=== PATIENT | female | born 1985 | race Caucasian/White ===

== ENCOUNTER 2021-03-18 13:36 | Emergency (ER) | payer OTHER ==
[~2021-03-18] VITALS: Ht 160 cm; Wt 59.1 kg
[2021-03-18] MEDS ORDERED: ZOLO100T (13:45)
[2021-03-18] MEDS ORDERED: ONDANSETRON 4MG/2ML VIAL IV ONE ×2 (14:10→17:10)
[2021-03-18 14:31] LABS: BASO % 0.2 % (0.0-1.0); EOS # 0.2 10^3/uL (0.0-0.5); EOS % 1.7 % (0.0-3.0); HEMOGLOBIN 16.1 g/dl (12.0-15.5); LYMPH # 2.6 10^3/uL (1.5-5.0); LYMPH % 27.9 % (24.0-44.0); MEAN CORPUSCULAR HEMOGLOBIN 33.1 pg (27.0-33.0); MEAN CORPUSCULAR VOLUME 94.7 fl (80.0-96.0); MONO # 0.5 10^3/uL (0.0-0.8); MONO % 5.2 % (2.0-8.0); NEUTROPHILS # 6.1 10^3/uL (1.5-8.5); NEUTROPHILS % 64.6 % (36.0-66.0); PLATELET COUNT, AUTOMATED 245 10^3/uL (150-450); RED BLOOD COUNT 4.86 10^6/uL (4.00-5.40); WHITE BLOOD COUNT 9.4 10^3/uL (4.0-10.0)
[2021-03-18] MEDS ORDERED: HALOPERIDOL 5MG/ML VIAL (J1630 PER 1) IV ONE (14:35)
[2021-03-18] MEDS ORDERED: HYOSCYAMINE SULFATE 0.125 MG SUBL TABLET SL ONE (14:50)
[2021-03-18 14:56] LABS: ALBUMIN 4.4 GM/DL (3.2-5.2); ALT/SGPT 20 U/L (12-78); BILIRUBIN,DIRECT 0.2 MG/DL (0.0-0.2); BILIRUBIN,TOTAL 0.5 MG/DL (0.2-1.0); BLOOD UREA NITROGEN 4 MG/DL (7-18); CALCIUM LEVEL 9.2 MG/DL (8.5-10.1); CARBON DIOXIDE LEVEL 24 MEQ/L (21-32); CHLORIDE LEVEL 108 MEQ/L (98-107); CREATININE FOR GFR 0.72 MG/DL (0.55-1.30); GLOMERULAR FILTRATION RATE > 60.0 (>60); GLUCOSE, FASTING 110 MG/DL (70-100); LIPASE 141 U/L (73-393); POTASSIUM SERUM 3.6 MEQ/L (3.5-5.1); SODIUM LEVEL 140 MEQ/L (136-145); TOTAL PROTEIN 7.1 GM/DL (6.4-8.2)
[2021-03-18 15:00] LABS: HCG, SERUM QUALITATIVE NEGATIVE (NEGATIVE)
[2021-03-18] MEDS ORDERED: GI COCKTAIL 50ML BTL(HYOSCYAMINE/MAALOX/LIDOCAINE VISCOUS)(1:3:1) PO ONE (15:10)
[2021-03-18] MEDS ORDERED: ZOFR4TAB16 PO (16:50)
[2021-03-18] MEDS ORDERED: LEVS0.123 PO (16:50)
[2021-03-18 17:30] VITALS: BP 128/72
== END 2021-03-18 18:12 | disposition home or self-care (01) ==
LOC: M ED 13:36
DX: R11.2 Nausea with vomiting, unspecified (principal); E86.0 Dehydration; R42 Dizziness and giddiness; F33.9 Major depressive disorder, recurrent, unspecified
CPT/HCPCS: 80048; 80076; 83690; 84443; 84703; 85025; 96372; 96374; 96375; 99284; J1630; J2405

== ENCOUNTER → 2022-11-12 | Outpatient (CLI) | payer OTHER ==
[~2022-11-12] MED LIST: FLUO20CA22 PO; LEVS0.123 PO; QUET50TA4 PO; ZOFR4TAB16 PO; ZOLO100T
== END ==
LOC: M LABSMTC 09:06
PROVIDERS: ATTEND Anesthesiology
DX: Z01.812 Encounter for preprocedural laboratory examination (principal); Z11.52 Encounter for screening for COVID-19

== ENCOUNTER 2022-11-15 10:34 | Day surgery (SDC) | payer OTHER ==
[~2022-11-15] VITALS: Ht 160 cm; Wt 62.1 kg
[2022-11-15 11:11] LABS: HEMATOCRIT 43.3 % (36.0-47.0); HEMOGLOBIN 14.3 g/dl (12.0-15.5); MEAN CORPUSCULAR HEMOGLOBIN 31.6 pg (27.0-33.0); MEAN CORPUSCULAR VOLUME 95.6 fl (80.0-96.0); PLATELET COUNT, AUTOMATED 198 10^3/uL (150-450); RED BLOOD COUNT 4.53 10^6/uL (4.00-5.40); WHITE BLOOD COUNT 4.9 10^3/uL (4.0-10.0)
[2022-11-15] MEDS ORDERED: LR 1,000 ML IV SCH ×3 (11:50→16:10)
[2022-11-15] MEDS ORDERED: SCOPOLAMINE 1MG TRANSDERMAL PATCH TOP ONE (12:25)
[2022-11-15] MEDS ORDERED: MIDAZOLAM INJ 2MG/2ML VIAL As Ordered ONE (12:29)
[2022-11-15] MEDS ORDERED: ONDANSETRON 4MG 2ML VIAL As Ordered ONE (12:29)
[2022-11-15] MEDS ORDERED: fentaNYL 100 MCG/2 ML INJECTION As Ordered ONE (12:29)
[2022-11-15] MEDS ORDERED: SUGAMMADEX SODIUM 500 MG/5 ML VIAL (BRIDION) As Ordered ONE (12:29)
[2022-11-15] MEDS ORDERED: METOCLOPRAMIDE INJ 10MG/2ML VIAL As Ordered ONE (12:29)
[2022-11-15] MEDS ORDERED: LIDOCAINE 2% 100MG/5ML SDV (FOR ANES.) As Ordered ONE (12:29)
[2022-11-15] MEDS ORDERED: propofoL 200 MG/20 ML VIAL As Ordered ONE (12:29)
[2022-11-15] MEDS ORDERED: KETOROLAC 60MG 2ML VIAL As Ordered ONE (12:29)
[2022-11-15] MEDS ORDERED: ROCURONIUM BROMIDE 50MG/5ML VIAL As Ordered ONE (12:29)
[2022-11-15] MEDS ORDERED: BUPIVACAINE HCL 0.25% 30ML VIAL As Ordered ONE (14:37)
[2022-11-15] MEDS ORDERED: ACETAMINOPHEN 1000MG 100ML IV BAG As Ordered ONE (15:05)
[2022-11-15] MEDS ORDERED: GLYCOPYRROLATE INJ 0.2 MG/ML 2 ML VIAL As Ordered ONE (15:09)
[2022-11-15] MEDS ORDERED: ONDANSETRON 4MG 2ML VIAL IV PRN (15:50)
[2022-11-15] MEDS ORDERED: MORPHINE 2 MG/ML 1ML VIAL IV PRN (15:50)
[2022-11-15] MEDS ORDERED: oxyCODONE 5MG TAB PO PRN (15:50)
[2022-11-15] MEDS: fentaNYL 100 MCG/2 ML INJECTION IV PRN ×4 (16:00→16:15)
[2022-11-15] MEDS ORDERED: PERCOCET 5MG/325MG TAB PO PRN (16:10)
[2022-11-15 16:38] VITALS: BP 115/64
[2022-11-15] MEDS ORDERED: OXYC1TAB23 PO (17:06)
[2022-11-15] MEDS ORDERED: IBUP-1022 PO (17:07)
== END 2022-11-15 17:05 | disposition home or self-care (01) ==
LOC: M SDC 10:34
PROVIDERS: ATTEND Specialist
DX: Z30.2 Encounter for sterilization (principal); R10.2 Pelvic and perineal pain; R56.9 Unspecified convulsions; F41.9 Anxiety disorder, unspecified; M54.9 Dorsalgia, unspecified; G89.29 Other chronic pain; F32.A Depression, unspecified; Z79.899 Other long term (current) drug therapy; F17.290 Nicotine dependence, other tobacco product, uncomplicated
CPT/HCPCS: 36415; 58661; 81025; 85027; 88302; J1100; J2250; J2405; J2765; J3010

== ENCOUNTER → 2023-04-03 | Outpatient (CLI) | payer OTHER ==
[~2023-04-03] MED LIST changes: +IBUP-1022 PO; +OXYC1TAB23 PO
== END ==
LOC: M PLALAB 14:53
PROVIDERS: ATTEND Specialist
DX: O92.6 Galactorrhea (principal)

== ENCOUNTER → 2023-05-10 | Outpatient (CLI) | payer OTHER ==
[2023-05-10 15:55] LABS: PROLACTIN 6.07 NG/ML; THYROID STIMULATING HORMONE 0.671 uIU/ML (0.55-4.78)
[2023-05-10 15:56] LABS: ESTRADIOL 22.1 PG/ML; FOLLICLE STIMULATING HORMONE 6.4 mIU/ML
[2023-05-10 15:57] LABS: LUTEINIZING HORMONE 4.5 mIU/ML
[2023-05-10 16:01] LABS: PROGESTERONE 0.62 NG/ML
== END ==
LOC: M PLALAB 14:11
PROVIDERS: ATTEND Specialist
DX: N92.6 Irregular menstruation, unspecified (principal)

== ENCOUNTER → 2023-09-13 | Outpatient (CLI) | payer OTHER ==
[2023-09-13 16:01] LABS: PROLACTIN 4.65 NG/ML
[2023-09-13 16:02] LABS: FOLLICLE STIMULATING HORMONE 8.4 mIU/ML; LUTEINIZING HORMONE 9.8 mIU/ML
[2023-09-13 16:03] LABS: ESTRADIOL 52.7 PG/ML
[2023-09-13 16:04] LABS: PROGESTERONE 0.39 NG/ML
== END ==
LOC: M PLALAB 13:41
PROVIDERS: ATTEND Specialist
DX: N92.6 Irregular menstruation, unspecified (principal)

== ENCOUNTER 2023-10-16 18:33 | Emergency (ER) | payer OTHER ==
[2023-10-16] MEDS ORDERED: diazePAM 10MG/2ML SYRINGE IV ONE (19:25)
[2023-10-16] MEDS: HALOPERIDOL 5MG/ML 1ML VIAL IV STA (19:43)
[2023-10-16 20:11] LABS: BASO % 0.1 % (0.0-1.0); HEMATOCRIT 38.8 % (36.0-47.0); HEMOGLOBIN 13.8 g/dl (12.0-15.5); LYMPH # 1.1 10^3/uL (1.5-5.0); LYMPH % 6.8 % (24.0-44.0); MEAN CORPUSCULAR HEMOGLOBIN 32.5 pg (27.0-33.0); MEAN CORPUSCULAR HGB CONC 35.6 g/dl (32.0-36.5); MEAN CORPUSCULAR VOLUME 91.3 fl (80.0-96.0); MONO # 0.7 10^3/uL (0.0-0.8); MONO % 4.1 % (2.0-8.0); NEUTROPHILS # 14.5 10^3/uL (1.5-8.5); NEUTROPHILS % 88.6 % (36.0-66.0); PLATELET COUNT, AUTOMATED 226 10^3/uL (150-450); RED BLOOD COUNT 4.25 10^6/uL (4.00-5.40); WHITE BLOOD COUNT 16.4 10^3/uL (4.0-10.0)
[2023-10-16 20:35] LABS: ALBUMIN 4.4 G/DL (3.2-5.2); ALKALINE PHOSPHATASE 79 U/L (46-116); ALT/SGPT 25 U/L (7.0-40); AST/SGOT 23 U/L (<34); BILIRUBIN,TOTAL 0.8 MG/DL (0.3-1.2); BLOOD UREA NITROGEN 11 MG/DL (9-23); CALCIUM LEVEL 9.2 MG/DL (8.5-10.1); CARBON DIOXIDE LEVEL 24 MMOL/L (20-31); CHLORIDE LEVEL 107 MMOL/L (98-107); CREATININE FOR GFR 0.68 MG/DL (0.55-1.30); GLOMERULAR FILTRATION RATE > 60.0 (>60); GLUCOSE, FASTING 125 MG/DL (60-100); MAGNESIUM LEVEL 1.8 MG/DL (1.8-2.4); POTASSIUM SERUM 3.9 MMOL/L (3.5-5.1); SODIUM LEVEL 140 MMOL/L (136-145); TOTAL PROTEIN 7.2 G/DL (5.7-8.2)
[2023-10-16 20:43] LABS: CPK CREATINE PHOSPHOKINASE 87 U/L (34-145)
[2023-10-16 21:53] LABS: HCG, SERUM QUALITATIVE NEGATIVE (NEGATIVE)
[2023-10-16 21:56] VITALS: BP 145/84; TEMP 96.5; O2SAT 95
[2023-10-16] MEDS ORDERED: ATIV1TAB10 PO (23:28)
[2023-10-17] MEDS: LORazepam 0.5 MG TAB PO ONE (00:20)
== END 2023-10-17 00:33 | disposition home or self-care (01) ==
LOC: M ED 18:33
DX: G40.909 Epilepsy, unspecified, not intractable, without status epilepticus (principal); F41.9 Anxiety disorder, unspecified; F32.A Depression, unspecified; Z79.899 Other long term (current) drug therapy
CPT/HCPCS: 80053; 82550; 83735; 84146; 84703; 85025; 96374; 99284; J1630

== ENCOUNTER → 2024-12-21 | Outpatient (CLI) | payer MEDICAID, OTHER ==
[~2024-12-21] MED LIST changes: +ATIV1TAB10 PO; +FLUO-365 PO; -FLUO20CA22 PO
== END ==
LOC: M SLEEP 08:17
PROVIDERS: ATTEND Psychiatry & Neurology Neurology
DX: G40.909 Epilepsy, unspecified, not intractable, without status epilepticus (principal)